=== PATIENT | male | born 1965 | race Hispanic/Latino ===

== ENCOUNTER 2016-09-07 16:18 | Emergency (ER) | payer SELFPAY ==
[2016-09-07] MEDS ORDERED: Sodium Chloride 0.9% 1,000 ML ONE ×2 (16:47→17:39)
[2016-09-07] MEDS ORDERED: Metoclopramide HCl 10 MG/2 ML VIAL ONE (16:47)
[2016-09-07] MEDS ORDERED: Lorazepam 2 MG/ML VIAL ONE (16:47)
[2016-09-07] MEDS ORDERED: Ketorolac Tromethamine 30 MG/ML VIAL ONE (16:47)
[2016-09-07 17:03] LABS: #Lymphocytes 0.7 thou/uL (1.20-3.40); #Monocytes 0.5 thou/uL (0.11-0.59); #Neutrophils 8.2 thou/uL (1.40-6.50); %Basophils 0.4 % (0.0-1.0); %Lymphocytes 7.5 % (21.0-51.0); %Neutrophils 87.1 % (42.0-75.0); Mean Corpuscular HGB CONC 34.9 g/dL (32.0-36.0); Mean Platelet Volume 7.4 fL (7.4-10.4); Platelet Count 285 thou/uL (130-400); RBC Distribution Width 11.3 % (11.5-14.5); Red Blood Cell (RBC) Count 3.66 mill/uL (4.70-6.10); White Blood Cell (WBC) Count 9.4 thou/uL (4.8-10.8)
[2016-09-07 17:07] LABS: ALT (SGPT) 29 U/L (0-55); AST (SGOT) 22 U/L (5-34); Albumin 4.2 g/dL (3.5-5.0); Alkaline Phosphatase 90 U/L (40-150); Anion Gap 18 mmol/L (10-20); BUN (Urea Nitrogen) 14 mg/dL (8.4-25.7); Bilirubin, Total 0.8 mg/dL (0.2-1.2); Calc. Creatinine Clearance 0 mL/min (70-130); Carbon Dioxide 23 mmol/L (22-29); Chloride 100 mmol/L (98-107); Estimated GFR-MDRD 67; Globulin 3.6 g/dL (2.4-3.5); Glucose 198 mg/dL (70-105); Lipase 21 U/L (8-78); Protein, Total 7.8 g/dL (6.0-8.3); Sodium 137 mmol/L (136-145)
[2016-09-07 17:12] LABS: Bilirubin Negative (Negative); Blood, Urine Trace (Negative); Glucose, Urine (Dipstick) 500 mg/dL (Negative); Leukocyte Negative (Negative); Nitrite Negative (Negative); Protein, Urine (Dipstick) 100 mg/dL (Neg-Trace); Specific Gravity, Urine 1.025 (1.005-1.030); Urobilinogen 0.2 mg/dL (0.2-1.0); pH, Urine 5.5 (5.0-9.0)
[2016-09-07 17:19] LABS: Bacteria/HPF 1+ HPF (None Seen); Clarity Hazy (Clear); RBC/HPF 0-3 HPF (0-3); Squamous Epithelial None Seen HPF (0-3); WBC/HPF None Seen HPF (0-3)
[2016-09-07] MEDS ORDERED: cefTRIAXone\\ROCEPHIN 1 GM VIAL ONE (17:39)
[2016-09-07] MEDS ORDERED: Sodium Chloride 0.9% 100 ML ONE (17:39)
--- NOTE | 2016-09-07 18:03 | RAD ---
ACUTE ABDOMINAL SERIES: 09/07/16 INDICATION: Abdominal pain. IMPRESSION: No acute cardiopulmonary abnormality is evident. Bowel gas pattern is nonobstructed. There is scatte red vascular calcifications. No acute osseous abnormality is evident. No suspicious calcifications a re noted. POS: [facility]
== END 2016-09-07 18:31 | disposition home or self-care (01) ==
LOC: NAV ERS 16:18
DX: K29.00 Acute gastritis without bleeding (principal); E86.0 Dehydration; N39.0 Urinary tract infection, site not specified; E11.9 Type 2 diabetes mellitus without complications; K21.9 Gastro-esophageal reflux disease without esophagitis; E78.5 Hyperlipidemia, unspecified; E78.00 Pure hypercholesterolemia, unspecified; I10 Essential (primary) hypertension; Z79.899 Other long term (current) drug therapy; Z79.84 Long term (current) use of oral hypoglycemic drugs
CPT/HCPCS: 74022; 80053; 81003; 81015; 83690; 84484; 85025; 86677; 87086; 93005; 96361; 96365; 96375; J0696; J1885; J2060; J2765; J7050

== ENCOUNTER 2023-07-06 11:25 | Inpatient (IN) | payer OTHER ==
[2023-07-06] MEDS ORDERED: Senokot S 8.6-50 MG TAB PO PRN (15:42)
[2023-07-06] MEDS ORDERED: Calcium Carbonate 500 MG ChewTAB PO PRN (15:42)
[2023-07-06] MEDS ORDERED: Glucagon 1 MG/ML KIT IM PRN (15:45)
[2023-07-06] MEDS ORDERED: Dextrose 50% Abboject 50 ML SYRINGE SLOW IVP PRN (15:45)
[2023-07-06] MEDS ORDERED: oxyCODONE 5 MG TAB PO PRN (17:22)
[2023-07-06] MEDS: Cephalexin 500 MG CAP PO SCH (18:23)
[2023-07-06] MEDS: Acetaminophen 325 MG TAB PO PRN (18:23)
[2023-07-06] MEDS: Ondansetron ODT 4 MG TAB PO PRN (20:19)
[2023-07-06] MEDS: Tamsulosin HCl 0.4 MG CAP PO SCH (21:26)
[2023-07-06] MEDS: Atorvastatin Calcium 40 MG TAB PO SCH (21:26)
[2023-07-06] MEDS: Famotidine 20 MG TAB PO SCH (21:27)
[2023-07-06] MEDS: Gabapentin 300 MG CAP PO SCH (21:27)
[2023-07-06] MEDS: Lantus 1000 UNITS/10 ML VIAL SC SCH (21:29)
[2023-07-07 05:55] LABS: #Basophils 0.1 thou/uL (0.0-0.2); #Eosinphils 0.1 thou/uL (0.0-0.7); #Lymphocytes 1.7 thou/uL (1.20-3.40); #Monocytes 0.7 thou/uL (0.11-0.59); %Basophils 0.7 % (0.0-1.0); %Eosinophils 1.5 % (0.0-10.0); %Lymphocytes 19.5 % (21.0-51.0); %Monocytes 8.7 % (0.0-10.0); %Neutrophils 69.7 % (42.0-75.0); Hemoglobin 9.2 g/dL (14.0-18.0); Mean Corpuscular HGB CONC 32.9 g/dL (32.0-36.0); Mean Corpuscular Volume 88.1 fl (78.0-98.0); Mean Platelet Volume 6.1 fL (7.4-10.4); Platelet Count 419 10x3/uL (130-400); RBC Distribution Width 12.9 % (11.5-14.5); Red Blood Cell (RBC) Count 3.18 mill/uL (4.70-6.10); White Blood Cell (WBC) Count 8.6 10x3/uL (4.8-10.8)
[2023-07-07 06:13] LABS: ALT (SGPT) 38 U/L (8-55); AST (SGOT) 29 U/L (5-34); Albumin 2.9 g/dL (3.5-5.0); Alkaline Phosphatase 55 U/L (40-110); Anion Gap 10 mmol/L (10-20); BUN (Urea Nitrogen) 32 mg/dL (8.4-25.7); Bilirubin, Total 0.2 mg/dL (0.2-1.2); Calc. Creatinine Clearance 51 mL/min (70-130); Calcium 8.3 mg/dL (7.8-10.44); Carbon Dioxide 23 mmol/L (22-29); Chloride 103 mmol/L (98-107); Estimated GFR 60; Globulin 3.7 g/dL (2.4-3.5); Glucose 124 mg/dL (70-105); Potassium 4.5 mmol/L (3.5-5.1); Protein, Total 6.6 g/dL (6.0-8.3); Sodium 131 mmol/L (136-145)
[2023-07-07] MEDS: Polyethylene Glycol 3350 17 GM Packet PO SCH (08:24)
[2023-07-07] MEDS: Enoxaparin 40 MG (0.4 mL) SYRINGE SC SCH (08:24)
[2023-07-07] MEDS: Alogliptin 6.25 MG TAB PO SCH (08:25)
[2023-07-07] MEDS: metFORMIN 500 MG TAB PO SCH ×3 (08:25→21:24)
[2023-07-07] MEDS: Ferrous Sulfate 325 MG TAB PO SCH (08:26)
[2023-07-07] MEDS: Saccharomyces boulardii 250 MG CAP PO SCH (08:32)
[2023-07-07] MEDS: traMADol HCl 50 MG TAB PO PRN (08:33)
[2023-07-07 12:42] LABS: Hemoglobin A1c 10.7 % (4.0-6.0)
[2023-07-07] MEDS: oxyCODONE 5 MG TAB PO PRN (15:14)
[2023-07-08 06:35] LABS: Anion Gap 9 mmol/L (10-20); BUN (Urea Nitrogen) 24 mg/dL (8.4-25.7); Calc. Creatinine Clearance 66 mL/min (70-130); Calcium 8.5 mg/dL (7.8-10.44); Carbon Dioxide 25 mmol/L (22-29); Chloride 105 mmol/L (98-107); Estimated GFR 82; Glucose 97 mg/dL (70-105); Potassium 4.2 mmol/L (3.5-5.1); Sodium 135 mmol/L (136-145)
[2023-07-08] MEDS: oxyCODONE 5 MG TAB PO SCH ×2 (08:44→14:48)
[2023-07-08] MEDS: Nystatin Cream 15 GM TUBE TOP SCH (23:50)
[2023-07-10 16:07] VITALS: BMI 21.9
[2023-07-10] MEDS: HumaLOG 300 UNITS/3 ML VIAL SC PRN (17:23)
[2023-07-11 05:52] LABS: #Basophils 0.1 thou/uL (0.0-0.2); #Eosinphils 0.1 thou/uL (0.0-0.7); #Lymphocytes 1.4 thou/uL (1.20-3.40); #Monocytes 0.6 thou/uL (0.11-0.59); #Neutrophils 4.2 thou/uL (1.40-6.50); %Basophils 1.7 % (0.0-1.0); %Eosinophils 1.7 % (0.0-10.0); %Lymphocytes 21.7 % (21.0-51.0); %Neutrophils 64.9 % (42.0-75.0); Hematocrit 28.9 % (42.0-52.0); Hemoglobin 9.5 g/dL (14.0-18.0); Mean Corpuscular HGB CONC 32.7 g/dL (32.0-36.0); Mean Corpuscular Hemoglobin 28.6 pg (27.0-31.0); Mean Corpuscular Volume 87.5 fl (78.0-98.0); Mean Platelet Volume 6.2 fL (7.4-10.4); Platelet Count 495 10x3/uL (130-400); RBC Distribution Width 12.9 % (11.5-14.5); Red Blood Cell (RBC) Count 3.31 mill/uL (4.70-6.10); White Blood Cell (WBC) Count 6.4 10x3/uL (4.8-10.8)
[2023-07-11 06:06] LABS: Anion Gap 12 mmol/L (10-20); BUN (Urea Nitrogen) 17 mg/dL (8.4-25.7); Calc. Creatinine Clearance 88 mL/min (70-130); Calcium 8.7 mg/dL (7.8-10.44); Carbon Dioxide 23 mmol/L (22-29); Chloride 107 mmol/L (98-107); Estimated GFR 102; Glucose 103 mg/dL (70-105); Potassium 3.9 mmol/L (3.5-5.1); Sodium 138 mmol/L (136-145)
[2023-07-13] MEDS: Ondansetron ODT 4 MG TAB PO PRN (11:21)
[2023-07-13] MEDS: Metoclopramide HCl 10 MG TAB PO SCH (16:31)
[2023-07-13] MEDS: hydrOXYzine 25 MG TAB PO SCH (17:01)
[2023-07-13] MEDS: Polyethylene Glycol 3350 17 GM Packet PO SCH (17:54)
[2023-07-13] MEDS ORDERED: hydrOXYzine 25 MG TAB PO PRN (21:38)
[2023-07-18 06:10] LABS: #Basophils 0.1 thou/uL (0.0-0.2); #Eosinphils 0.1 thou/uL (0.0-0.7); #Lymphocytes 1.4 thou/uL (1.20-3.40); #Monocytes 0.4 thou/uL (0.11-0.59); #Neutrophils 2.8 thou/uL (1.40-6.50); %Basophils 2.1 % (0.0-1.0); %Eosinophils 2.4 % (0.0-10.0); %Lymphocytes 28.9 % (21.0-51.0); %Neutrophils 57.6 % (42.0-75.0); Hematocrit 31.5 % (42.0-52.0); Hemoglobin 10.2 g/dL (14.0-18.0); Mean Corpuscular HGB CONC 32.4 g/dL (32.0-36.0); Mean Corpuscular Hemoglobin 28.8 pg (27.0-31.0); Mean Corpuscular Volume 88.7 fl (78.0-98.0); Mean Platelet Volume 6.8 fL (7.4-10.4); Platelet Count 356 10x3/uL (130-400); RBC Distribution Width 13.4 % (11.5-14.5); Red Blood Cell (RBC) Count 3.55 mill/uL (4.70-6.10); White Blood Cell (WBC) Count 4.8 10x3/uL (4.8-10.8)
[2023-07-18 06:25] LABS: Anion Gap 12 mmol/L (10-20); BUN (Urea Nitrogen) 18 mg/dL (8.4-25.7); Calc. Creatinine Clearance 81 mL/min (70-130); Calcium 8.9 mg/dL (7.8-10.44); Carbon Dioxide 20 mmol/L (22-29); Chloride 112 mmol/L (98-107); Estimated GFR 101; Glucose 106 mg/dL (70-105); Potassium 4.1 mmol/L (3.5-5.1); Sodium 140 mmol/L (136-145)
[2023-07-18 09:24] VITALS: BP 111/68; TEMP 97.8
== END 2023-07-18 16:15 | disposition home or self-care (01) | DRG 603 ==
LOC: NAV ACUTE 16:47
PROVIDERS: ADMIT Student in an Organized Health Care Education/Training Program; ATTEND Student in an Organized Health Care Education/Training Program
DX: L02.415 Cutaneous abscess of right lower limb (principal); N17.9 Acute kidney failure, unspecified; R53.1 Weakness; M60.9 Myositis, unspecified; I10 Essential (primary) hypertension; E78.5 Hyperlipidemia, unspecified; E11.51 Type 2 diabetes mellitus with diabetic peripheral angiopathy without gangrene; K21.9 Gastro-esophageal reflux disease without esophagitis; N40.0 Benign prostatic hyperplasia without lower urinary tract symptoms; E11.43 Type 2 diabetes mellitus with diabetic autonomic (poly)neuropathy; K31.84 Gastroparesis; L30.4 Erythema intertrigo; Z79.899 Other long term (current) drug therapy; Z89.512 Acquired absence of left leg below knee; Z89.511 Acquired absence of right leg below knee; D64.9 Anemia, unspecified; R19.7 Diarrhea, unspecified
CPT/HCPCS: 36415; 36416; 80048; 80053; 83036; 85025; 97602; J1650; J1815; Q0162